=== PATIENT | female | born 1950 | race Caucasian/White ===

== ENCOUNTER → 2019-03-23 | Outpatient (REF) | payer MEDICARE ==
[~2019-03-23] MED LIST: CALC600T7 PO; COUM2.5T17 PO; MULTCAP PO; PERC5TAB12 PO; TYLE325T5 PO
== END ==
LOC: M LAB REF 09:39
PROVIDERS: ATTEND Ophthalmology
DX: H02.834 Dermatochalasis of left upper eyelid (principal); H02.831 Dermatochalasis of right upper eyelid

== ENCOUNTER → 2020-09-07 | Outpatient (CLI) | payer MEDICARE ==
[~2020-09-07] MED LIST changes: +CALC-212 PO; -CALC600T7 PO
--- NOTE | 2020-09-08 14:32 | SLEEPCENT ---
NOCTURNAL POLYSOMNOGRAPHY DATE: 09/07/2020 ORDERED BY: Sarah Biggs NP Nocturnal polysomnography was performed for the titration of pressure therapy in this patient with obstructive sleep apnea syndrome. For testing a ResMed AirFit f30 full face mask of medium size was used, 8 cm of water pressure were applied to the circuit, and the lights were extinguished. 7 hours and 36 minutes of data were reviewed. There were 422.5 minutes of sleep identified. Sleep latency was short at 3.5 minutes. REM latency was normal at 106 minutes. Sleep architecture was good. There were four REM cycles noted. Overall sleep efficiency was 94%. The electrocardiogram showed a sinus rhythm with occasional PVCs. Average heart rate of 65 beats per minute. EEG showed normal waveforms for wake and sleep. No focal events were identified. Respiratory events were best palliated with CPAP at a pressure of +10 and remaining measures of sleep physiology were normal. IMPRESSION: Obstructive sleep apnea syndrome (G47.33). RECOMMENDATION: Nightly use of pressure therapy 10 cm of water.
== END ==
LOC: M SLEEP 20:00
PROVIDERS: ATTEND Nurse Practitioner Adult Health
DX: G47.33 Obstructive sleep apnea (adult) (pediatric) (principal)